=== PATIENT | female | born 1950 | race Hispanic/Latino ===

== ENCOUNTER → 2018-07-30 | Outpatient (CLI) | payer OTHER | END | disposition home or self-care (01) | LOC: RAH 12:35 | PROVIDERS: ATTEND Family Medicine | DX: N63.11 Unspecified lump in the right breast, upper outer quadrant (principal) | CPT/HCPCS: 76641 ==

== ENCOUNTER 2022-07-24 00:55 | Inpatient (IN) | payer OTHER, MEDICARE ==
[~2022-07-24] VITALS: Ht 162.6 cm; Wt 63.2 kg
[2022-07-24 01:26] LABS: BASOPHILS % (AUTO) 0.3 % (0.0-5.0); EOSINOPHILS % (AUTO) 0.5 % (0.0-8.0); HEMATOCRIT 41.1 % (36-48); LYMPHOCYTES % (AUTO) 18.4 % (21.0-51.0); MEAN CORPUSCULAR HEMOGLOBIN 30.2 pg (27.0-33.0); MEAN CORPUSCULAR HGB CONC 33.8 g/dL (32.0-36.0); MEAN CORPUSCULAR VOLUME 89.2 fL (79-99); NEUTROPHILS % (AUTO) 74.6 % (40.0-77.0); PLATELET COUNT (AUTO) 295 K/uL (130-400); RED BLOOD CELL COUNT(AUTO) 4.61 MIL/uL (4.00-5.50); RED CELL DISTRIBUTION WIDTH 12.6 % (11.0-15.5); WHITE BLOOD COUNT (AUTO) 14.9 K/uL (4.8-10.8)
[2022-07-24 01:29] LABS: APPEARANCE,URINE CLEAR (CLEAR); BILIRUBIN,URINE NEGATIVE (NEGATIVE); COLOR,URINE LIGHT-YELLOW (YELLOW); GLUCOSE, URINE (UA) NEGATIVE (NEGATIVE); KETONES,URINE NEGATIVE (NEGATIVE); LEUKOCYTE ESTERASE ,URINE NEGATIVE Leu/uL (NEGATIVE); NITRATE,URINE NEGATIVE (NEGATIVE); OCCULT BLOOD,URINE SMALL (NEGATIVE); PH,URINE 5.5 (5.0-8.0); PROTEIN,URINE NEGATIVE (NEGATIVE); UROBILINOGEN,URINE 0.2 mg/dL (0.2-1.0)
[2022-07-24] MEDS ORDERED: KETOROLAC 30MG VIAL (30MG/ML) IVP ONE (01:30)
[2022-07-24] MEDS ORDERED: ONDANSETRON 4MG INJ IVP ONE (01:30)
[2022-07-24 01:33] LABS: CREATININE 0.8 mg/dL (0.5-1.5); POTASSIUM 3.9 mmol/L (3.5-5.1)
[2022-07-24 01:37] LABS: TOTAL PROTEIN, SERUM 7.7 g/dL (6.0-8.3)
[2022-07-24 01:43] LABS: MUCUS,URINE RARE LPF (None Seen); SQUAMOUS EPITHELIAL CELL,UR RARE /HPF (0-2); WBC,URINE 0-1 /HPF (0-1)
[2022-07-24] MEDS ORDERED: METRONIDAZOLE 500MG/100ML BAG 100 ML ONE (03:57)
[2022-07-24] MEDS ORDERED: LEVOFLOXACIN 750 MG/D5W 150ML BAG IVPB ONE (04:00)
[2022-07-24] MEDS ORDERED: ONDANSETRON 4MG INJ IVP PRN (05:30)
[2022-07-24] MEDS ORDERED: HYDRALAZINE 20MG/ML VIAL IV PRN (05:30)
[2022-07-24] MEDS: LACTATED RINGERS 1000ML 1,000 ML IV SCH ×2 (05:44→11:33)
[2022-07-24] MEDS ORDERED: METRONIDAZOLE 500MG/100ML BAG 100 ML IVPB SCH (06:00)
[2022-07-24] MEDS: FAMOTIDINE 20MG VIAL IV SCH (08:06)
[2022-07-24] MEDS ORDERED: CEFTRIAXONE 2GM VIAL IVP SCH (09:00)
[2022-07-24 10:20] VITALS: BP 106/51
[2022-07-24] MEDS ORDERED: MEPERIDINE-PF 25 MG/ML SYG IVP PRN (15:00)
[2022-07-24] MEDS: ZOSYN 3.375GM +NS 50ML IV SCH ×2 (15:58→22:22)
[2022-07-24] MEDS: ACETAMINOPHEN 650 MG SUPPOSITORY RC SCH ×2 (15:58→22:11)
[2022-07-24 16:15] VITALS: BP 123/53
[2022-07-24 20:00] VITALS: BP 108/53
[2022-07-25] VITALS (7 sets, daily range): BP systolic 98–133; BP diastolic 46–66
[2022-07-25 05:19] LABS: BASOPHILS % (AUTO) 0.4 % (0.0-5.0); EOSINOPHILS % (AUTO) 1.7 % (0.0-8.0); HEMATOCRIT 34.6 % (36-48); MEAN CORPUSCULAR HEMOGLOBIN 30.1 pg (27.0-33.0); MEAN CORPUSCULAR HGB CONC 32.4 g/dL (32.0-36.0); MONOCYTES % (AUTO) 8.3 % (3.0-13.0); NEUTROPHILS % (AUTO) 60.3 % (40.0-77.0); PLATELET COUNT (AUTO) 208 K/uL (130-400); RED BLOOD CELL COUNT(AUTO) 3.72 MIL/uL (4.00-5.50); RED CELL DISTRIBUTION WIDTH 12.8 % (11.0-15.5); WHITE BLOOD COUNT (AUTO) 7.7 K/uL (4.8-10.8)
[2022-07-25] MEDS: ZOSYN 3.375GM +NS 50ML IV SCH ×3 (05:22→23:12)
[2022-07-25] MEDS: ACETAMINOPHEN 650 MG SUPPOSITORY RC SCH ×4 (05:26→23:14)
[2022-07-25 05:55] LABS: CREATININE 0.8 mg/dL (0.5-1.5); CRP QUANTITATIVE 124.4 mg/L (0.00-9.0); MAGNESIUM 1.9 mg/dL (1.80-2.40); PHOSPHORUS 4.2 mg/dL (2.5-4.9); POTASSIUM 3.5 mmol/L (3.5-5.1)
[2022-07-25] MEDS: FAMOTIDINE 20MG VIAL IV SCH (11:23)
[2022-07-25] MEDS ORDERED: SUCRALFATE 1 GM TABLET PO SCH (12:30)
[2022-07-25] MEDS ORDERED: MECL-160 PO (17:45)
[2022-07-25] MEDS ORDERED: LINA145C PO (17:45)
[2022-07-25] MEDS: PANTOPRAZOLE 40 MG TAB DR PO SCH ×2 (17:57→21:41)
[2022-07-25] MEDS: SUCRALFATE 1 GM TABLET PO SCH ×2 (17:57→21:41)
[2022-07-26 04:21] VITALS: BP 124/62
[2022-07-26] MEDS: SUCRALFATE 1 GM TABLET PO SCH ×4 (05:23→20:28)
[2022-07-26] MEDS: ZOSYN 3.375GM +NS 50ML IV SCH ×2 (05:27→15:46)
[2022-07-26 08:00] VITALS: BP 151/64
[2022-07-26] MEDS: PANTOPRAZOLE 40 MG TAB DR PO SCH ×2 (08:57→20:27)
[2022-07-26] MEDS: LACTATED RINGERS 1000ML 1,000 ML IV SCH ×2 (10:50→12:13)
[2022-07-26 11:51] VITALS: BP 141/63
[2022-07-26 15:55] VITALS: BP 136/64
[2022-07-26] MEDS ORDERED: PHARMACY COMMUNICATION MISC SCH (18:00)
[2022-07-26] MEDS ORDERED: ACETAMINOPHEN 325 MG TAB PO PRN (18:00)
[2022-07-26 20:51] VITALS: BP 125/63
[2022-07-26 23:34] VITALS: BP 151/62
[2022-07-27] MEDS: ZOSYN 3.375GM +NS 50ML IV SCH ×4 (00:26→15:32)
[2022-07-27] MEDS ORDERED: MAG/ALUM/SIMETH 30 ML UDCUP PO PRN (01:00)
[2022-07-27] MEDS ORDERED: NITROGLYCERIN 0.4 MG SL TAB SL PRN (01:00)
[2022-07-27] MEDS ORDERED: ASPIRIN 325MG TAB PO SCH (01:00)
[2022-07-27 04:12] VITALS: BP 123/71
[2022-07-27 05:39] LABS: BASOPHILS % (AUTO) 0.3 % (0.0-5.0); EOSINOPHILS % (AUTO) 2.3 % (0.0-8.0); HEMATOCRIT 33.4 % (36-48); LYMPHOCYTES % (AUTO) 35.4 % (21.0-51.0); MEAN CORPUSCULAR HEMOGLOBIN 30.2 pg (27.0-33.0); MEAN CORPUSCULAR HGB CONC 33.8 g/dL (32.0-36.0); MEAN CORPUSCULAR VOLUME 89.3 fL (79-99); MONOCYTES % (AUTO) 6.3 % (3.0-13.0); NEUTROPHILS % (AUTO) 55.4 % (40.0-77.0); PLATELET COUNT (AUTO) 236 K/uL (130-400); RED BLOOD CELL COUNT(AUTO) 3.74 MIL/uL (4.00-5.50); RED CELL DISTRIBUTION WIDTH 12.2 % (11.0-15.5); WHITE BLOOD COUNT (AUTO) 6.5 K/uL (4.8-10.8)
[2022-07-27 06:06] LABS: CREATININE 0.6 mg/dL (0.5-1.5); POTASSIUM 3.1 mmol/L (3.5-5.1)
[2022-07-27] MEDS: SUCRALFATE 1 GM TABLET PO SCH ×3 (06:37→15:32)
[2022-07-27] MEDS: PANTOPRAZOLE 40 MG TAB DR PO SCH (09:48)
[2022-07-27 16:00] VITALS: BP 129/57
== END 2022-07-27 18:00 | disposition home or self-care (01) | DRG 392 ==
LOC: EDH 00:55 → EDHIP 05:19 → OBSVTOIN 05:19 → 4CH 09:32
PROVIDERS: ADMIT Internal Medicine Critical Care Medicine; ATTEND Internal Medicine Critical Care Medicine
DX: K57.32 Diverticulitis of large intestine without perforation or abscess without bleeding (principal); F41.9 Anxiety disorder, unspecified; K59.09 Other constipation; K21.9 Gastro-esophageal reflux disease without esophagitis; Z90.710 Acquired absence of both cervix and uterus; Z88.5 Allergy status to narcotic agent; Z87.19 Personal history of other diseases of the digestive system; K58.1 Irritable bowel syndrome with constipation
CPT/HCPCS: 36415; 71045; 74176; 80048; 80053; 81001; 83735; 83880; 84100; 84484; 85025; 86140; 87040; 93005; 96374; 96375; G0378; J0696; J1885; J1956; J2175; J2405; J2543; J3490; J7120

== ENCOUNTER → 2023-02-22 | Outpatient (CLI) | payer OTHER, MEDICARE ==
[~2023-02-22] MED LIST: LINA145C PO; MECL-160 PO
== END | disposition home or self-care (01) ==
LOC: RAH 10:30
PROVIDERS: ATTEND Internal Medicine
DX: R10.12 Left upper quadrant pain (principal); R11.0 Nausea
CPT/HCPCS: 78264; A9541

== ENCOUNTER → 2023-07-06 | Outpatient (CLI) | payer OTHER, MEDICARE ==
[~2023-07-06] MED LIST changes: -MECL-160 PO; +MECL-302 PO
[2023-07-06 14:16] LABS: BASOPHILS # (AUTO) 0.04 K/uL (0.00-0.20); BASOPHILS % (AUTO) 0.7 % (0.0-5.0); EOSINOPHILS # (AUTO) 0.05 K/uL (0.00-0.70); EOSINOPHILS % (AUTO) 0.9 % (0.0-8.0); IMMATURE GRANULOCYTE ABSOLUTE 0.01 K/uL (0-1); LYMPHOCYTES # (AUTO) 2.2 K/uL (1.0-4.8); LYMPHOCYTES % (AUTO) 40.7 % (21.0-51.0); MEAN CORPUSCULAR HEMOGLOBIN 30.4 pg (27.0-33.0); MEAN CORPUSCULAR HGB CONC 33.6 g/dL (32.0-36.0); MEAN CORPUSCULAR VOLUME 90.5 fL (79-99); MONOCYTES # (AUTO) 0.3 K/uL (0.1-1.0); MONOCYTES % (AUTO) 5.9 % (3.0-13.0); NEUTROPHILS # (AUTO) 2.8 K/uL (1.8-7.7); NEUTROPHILS % (AUTO) 51.6 % (40.0-77.0); PLATELET COUNT (AUTO) 279 K/uL (130-400); RED BLOOD CELL COUNT(AUTO) 4.31 MIL/uL (4.00-5.50); RED CELL DISTRIBUTION WIDTH 12.6 % (11.0-15.5); WHITE BLOOD COUNT (AUTO) 5.5 K/uL (4.8-10.8)
[2023-07-06 14:32] LABS: ALBUMIN 3.4 g/dL (3.5-5.0); BILIRUBIN,TOTAL 0.3 mg/dL (0.2-1.0); CREATININE 0.6 mg/dL (0.5-1.5); TOTAL PROTEIN, SERUM 6.9 g/dL (6.0-8.3)
== END | disposition home or self-care (01) ==
LOC: LAB 13:43
PROVIDERS: ATTEND Internal Medicine
DX: R10.32 Left lower quadrant pain (principal)
CPT/HCPCS: 36415; 80053; 85025

== ENCOUNTER → 2023-07-14 | Outpatient (CLI) | payer OTHER, MEDICARE ==
[~2023-07-14] MED LIST changes: +IOHEXOL-350 75 ML VIAL IV ONE
== END | disposition home or self-care (01) ==
LOC: RAH 07:24
PROVIDERS: ATTEND Internal Medicine
DX: K57.90 Diverticulosis of intestine, part unspecified, without perforation or abscess without bleeding (principal); R10.32 Left lower quadrant pain; M47.815 Spondylosis without myelopathy or radiculopathy, thoracolumbar region; I70.90 Unspecified atherosclerosis; Z90.49 Acquired absence of other specified parts of digestive tract
CPT/HCPCS: 74178; Q9967

== ENCOUNTER 2023-09-28 03:05 | Inpatient (IN) | payer OTHER, MEDICARE ==
[~2023-09-28] VITALS: Ht 162.6 cm; Wt 59.4 kg
[~2023-09-28 03:05] MED LIST changes: -IOHEXOL-350 75 ML VIAL IV ONE; +MECL-160 PO; -MECL-302 PO
[2023-09-28 04:16] LABS: BASOPHILS # (AUTO) 0.04 K/uL (0.00-0.20); BASOPHILS % (AUTO) 0.5 % (0.0-5.0); EOSINOPHILS # (AUTO) 0.03 K/uL (0.00-0.70); EOSINOPHILS % (AUTO) 0.3 % (0.0-8.0); HEMATOCRIT 38.6 % (36-48); IMMATURE GRANULOCYTE ABSOLUTE 0.03 K/uL (0-1); LYMPHOCYTES # (AUTO) 1.7 K/uL (1.0-4.8); LYMPHOCYTES % (AUTO) 18.9 % (21.0-51.0); MEAN CORPUSCULAR HEMOGLOBIN 30.6 pg (27.0-33.0); MEAN CORPUSCULAR HGB CONC 33.4 g/dL (32.0-36.0); MEAN CORPUSCULAR VOLUME 91.7 fL (79-99); MONOCYTES # (AUTO) 0.4 K/uL (0.1-1.0); MONOCYTES % (AUTO) 4.5 % (3.0-13.0); NEUTROPHILS # (AUTO) 6.7 K/uL (1.8-7.7); NEUTROPHILS % (AUTO) 75.5 % (40.0-77.0); PLATELET COUNT (AUTO) 261 K/uL (130-400); RED BLOOD CELL COUNT(AUTO) 4.21 MIL/uL (4.00-5.50); RED CELL DISTRIBUTION WIDTH 13.5 % (11.0-15.5); WHITE BLOOD COUNT (AUTO) 8.9 K/uL (4.8-10.8)
[2023-09-28] MEDS: MECLIZINE HCL 25 MG TABLET PO ONE (04:18)
[2023-09-28] MEDS: ONDANSETRON 4MG INJ IVP ONE (04:18)
[2023-09-28 04:32] LABS: INR 0.96 (0.85-1.15); PROTHROMBIN TIME 11.4 SEC (9.6-11.6)
[2023-09-28 04:33] LABS: CREATININE 0.5 mg/dL (0.5-1.0); PARTIAL THROMBOPLASTIN TIME 25.5 SEC (26.3-35.5); POTASSIUM 4.2 mmol/L (3.5-5.1)
[2023-09-28 04:37] LABS: ALBUMIN 3.3 g/dL (3.5-5.0); BILIRUBIN,TOTAL 0.4 mg/dL (0.2-1.0); TOTAL PROTEIN, SERUM 6.5 g/dL (6.0-8.3)
[2023-09-28] MEDS ORDERED: AMOX1TAB16 PO (05:47)
[2023-09-28] MEDS ORDERED: MECL-160 PO (05:47)
[2023-09-28 06:04] LABS: APPEARANCE,URINE CLEAR (CLEAR); BILIRUBIN,URINE NEGATIVE (NEGATIVE); COLOR,URINE COLORLESS (YELLOW); GLUCOSE, URINE (UA) NEGATIVE (NEGATIVE); KETONES,URINE NEGATIVE (NEGATIVE); LEUKOCYTE ESTERASE ,URINE 25 Leu/uL (NEGATIVE); NITRATE,URINE NEGATIVE (NEGATIVE); PH,URINE 6.5 (5.0-8.0); PROTEIN,URINE NEGATIVE (NEGATIVE); UROBILINOGEN,URINE 0.2 mg/dL (0.2-1.0)
[2023-09-28 06:05] LABS: ADD UA MICROSCOPIC YES
[2023-09-28 06:07] LABS: SQUAMOUS EPITHELIAL CELL,UR RARE /HPF (0-2)
[2023-09-28] MEDS ORDERED: HYDRALAZINE 20MG/ML VIAL IV PRN (07:00)
[2023-09-28] MEDS ORDERED: ACETAMINOPHEN 650 MG SUPPOSITORY RC PRN (07:00)
[2023-09-28] MEDS ORDERED: LACTULOSE 20 GM/30 ML UDCUP PO PRN (07:00)
[2023-09-28] MEDS ORDERED: ONDANSETRON 4MG INJ IVP PRN (07:00)
[2023-09-28 07:30] VITALS: BP 117/67; PULSE 51; RESP 18; O2SAT 100
[2023-09-28] MEDS: INSULIN HUMULIN R 100 UNIT/ML 3ML SQ SCH (07:30)
[2023-09-28] MEDS ORDERED: POTASSIUM CHLORIDE 10% ELIXIR 20 MEQ/15 ML UDCUP PO PRN (09:00)
[2023-09-28] MEDS ORDERED: POTASSIUM CHLORIDE 20MEQ/100ML 100 ML IV PRN (09:00)
[2023-09-28] MEDS: ENOXAPARIN SODIUM 40 MG/0.4 ML SYRINGE SQ SCH (09:32)
[2023-09-28] MEDS: CEFTRIAXONE 2GM VIAL IVPB SCH (09:32)
[2023-09-28] MEDS: ASPIRIN 81 MG EC TAB PO SCH (09:33)
[2023-09-28] MEDS: PANTOPRAZOLE 40 MG TAB DR PO SCH (09:33)
[2023-09-28 10:16] LABS: THYROID STIMULATING HORMONE 2.9 uIU/mL (0.36-3.74)
[2023-09-28 12:17] VITALS: BP 109/43; PULSE 49; RESP 18
[2023-09-28] MEDS: ACETAMINOPHEN 325 MG TAB PO PRN (14:17)
[2023-09-28] MEDS: CLOPIDOGREL 300MG TAB PO ONE (15:16)
[2023-09-28] MEDS: NITROGLYCERIN 0.4 MG SL TAB SL PRN (15:20)
[2023-09-28] MEDS ORDERED: ENOXAPARIN SODIUM 60 MG/0.6 ML SQ SCH (15:30)
[2023-09-28 16:00] VITALS: BP 113/50; PULSE 48; RESP 18
[2023-09-28 19:10] VITALS: BP 110/57; PULSE 47; RESP 18
[2023-09-28 19:30] VITALS: O2SAT 100
[2023-09-28] MEDS: ENOXAPARIN SODIUM 60 MG/0.6 ML SQ SCH (21:56)
[2023-09-28] MEDS: ATORVASTATIN 20 MG TABLET PO SCH (22:50)
[2023-09-29] VITALS (9 sets, daily range): BP systolic 113–139; BP diastolic 48–58; PULSE 45–54; RESP 18–20; O2SAT 93–98
[2023-09-29 05:06] LABS: BASOPHILS # (AUTO) 0.05 K/uL (0.00-0.20); BASOPHILS % (AUTO) 0.8 % (0.0-5.0); EOSINOPHILS % (AUTO) 1.6 % (0.0-8.0); HEMATOCRIT 35.7 % (36-48); IMMATURE GRANULOCYTE ABSOLUTE 0.01 K/uL (0-1); LYMPHOCYTES # (AUTO) 3.4 K/uL (1.0-4.8); LYMPHOCYTES % (AUTO) 52.8 % (21.0-51.0); MEAN CORPUSCULAR HEMOGLOBIN 30.5 pg (27.0-33.0); MEAN CORPUSCULAR HGB CONC 34.2 g/dL (32.0-36.0); MEAN CORPUSCULAR VOLUME 89.3 fL (79-99); MONOCYTES # (AUTO) 0.4 K/uL (0.1-1.0); MONOCYTES % (AUTO) 6.4 % (3.0-13.0); NEUTROPHILS # (AUTO) 2.4 K/uL (1.8-7.7); NEUTROPHILS % (AUTO) 38.2 % (40.0-77.0); PLATELET COUNT (AUTO) 257 K/uL (130-400); RED CELL DISTRIBUTION WIDTH 13.6 % (11.0-15.5); WHITE BLOOD COUNT (AUTO) 6.4 K/uL (4.8-10.8)
[2023-09-29 05:19] LABS: CREATININE 0.7 mg/dL (0.5-1.0); PHOSPHORUS 4.1 mg/dL (2.5-4.9); POTASSIUM 3.4 mmol/L (3.5-5.1)
[2023-09-29] MEDS: CLOPIDOGREL 75MG TAB PO SCH (09:29)
[2023-09-29] MEDS: KCL 20 MEQ ERTAB PO PRN (09:31)
[2023-09-29] MEDS ORDERED: CALCIUM CARB 500MG CHEW TAB PO PRN (10:30)
[2023-09-29] MEDS: CALCIUM CARB 500MG CHEW TAB PO PRN (11:21)
[2023-09-30] VITALS (39 sets, daily range): BP systolic 90–162; BP diastolic 34–97; PULSE 40–86; RESP 12–28; TEMP 97.8–98.8; O2SAT 98
[2023-09-30 04:45] LABS: BASOPHILS # (AUTO) 0.05 K/uL (0.00-0.20); BASOPHILS % (AUTO) 0.7 % (0.0-5.0); EOSINOPHILS # (AUTO) 0.13 K/uL (0.00-0.70); EOSINOPHILS % (AUTO) 1.8 % (0.0-8.0); HEMATOCRIT 37.1 % (36-48); IMMATURE GRANULOCYTE ABSOLUTE 0.01 K/uL (0-1); LYMPHOCYTES # (AUTO) 3.2 K/uL (1.0-4.8); MEAN CORPUSCULAR HEMOGLOBIN 30.4 pg (27.0-33.0); MEAN CORPUSCULAR HGB CONC 33.2 g/dL (32.0-36.0); MEAN CORPUSCULAR VOLUME 91.8 fL (79-99); MONOCYTES # (AUTO) 0.5 K/uL (0.1-1.0); MONOCYTES % (AUTO) 7.2 % (3.0-13.0); NEUTROPHILS # (AUTO) 3.2 K/uL (1.8-7.7); NEUTROPHILS % (AUTO) 45.2 % (40.0-77.0); PLATELET COUNT (AUTO) 253 K/uL (130-400); RED BLOOD CELL COUNT(AUTO) 4.04 MIL/uL (4.00-5.50); RED CELL DISTRIBUTION WIDTH 13.3 % (11.0-15.5); WHITE BLOOD COUNT (AUTO) 7.1 K/uL (4.8-10.8)
[2023-09-30 05:03] LABS: ALBUMIN 3.2 g/dL (3.5-5.0); BILIRUBIN,TOTAL 0.6 mg/dL (0.2-1.0); CREATININE 0.7 mg/dL (0.5-1.0); MAGNESIUM 1.9 mg/dL (1.80-2.40); TOTAL PROTEIN, SERUM 6.1 g/dL (6.0-8.3)
[2023-09-30] MEDS: LINZESS 145MCG CAPSULE PO SCH (06:12)
[2023-09-30] MEDS: MAGNESIUM 2GM PREMIX 50ML 50 ML IV PRN (06:41)
[2023-09-30] MEDS: MORPHINE 2 MG SYG ONE (18:13)
[2023-09-30] MEDS ORDERED: NITROGLYCERIN 50MG/D5W 250ML 250 BOT IV PRN (18:30)
[2023-09-30] MEDS ORDERED: ONDANSETRON 4MG TABLET PO PRN (18:30)
[2023-09-30] MEDS: NITROGLYCERIN 50MG/D5W 250ML 1 BOT ONE (18:38)
[2023-09-30] MEDS: METOPROLOL TARTRATE 1 MG/ML 5ML VIAL IV ONE (18:43)
[2023-09-30] MEDS: METOPROLOL TARTRATE 25 MG TAB PO SCH (20:47)
[2023-10-01] VITALS (107 sets, daily range): BP systolic 88–152; BP diastolic 23–100; PULSE 40–95; RESP 9–39; TEMP 97.4–98; O2SAT 98–99
[2023-10-01 04:47] LABS: BASOPHILS # (AUTO) 0.05 K/uL (0.00-0.20); BASOPHILS % (AUTO) 0.8 % (0.0-5.0); EOSINOPHILS # (AUTO) 0.12 K/uL (0.00-0.70); EOSINOPHILS % (AUTO) 1.9 % (0.0-8.0); IMMATURE GRANULOCYTE ABSOLUTE 0.01 K/uL (0-1); LYMPHOCYTES # (AUTO) 3.2 K/uL (1.0-4.8); LYMPHOCYTES % (AUTO) 51.8 % (21.0-51.0); MEAN CORPUSCULAR HEMOGLOBIN 30.4 pg (27.0-33.0); MEAN CORPUSCULAR HGB CONC 33.1 g/dL (32.0-36.0); MEAN CORPUSCULAR VOLUME 92.1 fL (79-99); MONOCYTES # (AUTO) 0.5 K/uL (0.1-1.0); MONOCYTES % (AUTO) 7.8 % (3.0-13.0); NEUTROPHILS # (AUTO) 2.3 K/uL (1.8-7.7); NEUTROPHILS % (AUTO) 37.5 % (40.0-77.0); PLATELET COUNT (AUTO) 245 K/uL (130-400); RED BLOOD CELL COUNT(AUTO) 3.91 MIL/uL (4.00-5.50); RED CELL DISTRIBUTION WIDTH 13.3 % (11.0-15.5); WHITE BLOOD COUNT (AUTO) 6.3 K/uL (4.8-10.8)
[2023-10-01 05:08] LABS: ALBUMIN 3.2 g/dL (3.5-5.0); BILIRUBIN,TOTAL 0.6 mg/dL (0.2-1.0); CREATININE 0.8 mg/dL (0.5-1.0); MAGNESIUM 2.1 mg/dL (1.80-2.40); POTASSIUM 3.8 mmol/L (3.5-5.1); TOTAL PROTEIN, SERUM 6.1 g/dL (6.0-8.3)
[2023-10-01] MEDS: METOPROLOL TARTRATE 1 MG/ML 5ML VIAL IV ONE ×2 (23:37→23:59)
[2023-10-02] VITALS (52 sets, daily range): BP systolic 87–131; BP diastolic 35–73; PULSE 40–77; RESP 9–33; TEMP 98–98.3; O2SAT 99–100
[2023-10-02] MEDS: FENTANYL CITRATE PF 50 MCG/1 ML 2ML VIAL IVP ONE ×2 (00:05→00:50)
[2023-10-02 03:38] LABS: HEMATOCRIT 35.7 % (36-48); MEAN CORPUSCULAR HEMOGLOBIN 29.8 pg (27.0-33.0); MEAN CORPUSCULAR HGB CONC 32.8 g/dL (32.0-36.0); MEAN CORPUSCULAR VOLUME 91.1 fL (79-99); RED BLOOD CELL COUNT(AUTO) 3.92 MIL/uL (4.00-5.50); WHITE BLOOD COUNT (AUTO) 7.3 K/uL (4.8-10.8)
[2023-10-02 03:48] LABS: CREATININE 0.8 mg/dL (0.5-1.0)
[2023-10-02 03:58] LABS: INR 1.02 (0.85-1.15); PARTIAL THROMBOPLASTIN TIME 30.6 SEC (26.3-35.5)
[2023-10-02 04:02] LABS: POTASSIUM 3.7 mmol/L (3.5-5.1)
[2023-10-02] MEDS ORDERED: LIDOCAINE HCL 400MG/20ML VIAL ONE (07:42)
[2023-10-02] MEDS ORDERED: HEPARIN 10,000 UNIT/10ML (1,000 UNIT/ML) VIAL ONE (07:42)
[2023-10-02] MEDS ORDERED: MIDAZOLAM HCL 1 MG/ML 2ML VIAL ONE (07:42)
[2023-10-02] MEDS ORDERED: FENTANYL CITRATE PF 50 MCG/1 ML 2ML VIAL ONE (07:42)
[2023-10-02] MEDS ORDERED: NICARDIPINE 25MG INJ IV ONE (07:42)
[2023-10-02] MEDS ORDERED: IOHEXOL 350 MG/ML 100ML INFUS..BTL IV ONE (07:42)
[2023-10-02] MEDS ORDERED: NITROGLYCERIN 50MG VIAL ONE (07:55)
[2023-10-02] MEDS ORDERED: IOHEXOL-350 50ML VIAL IV ONE (08:49)
[2023-10-02] MEDS ORDERED: GLUCAGON 1MG KIT 1 MG ML IM PRN (09:30)
[2023-10-02] MEDS ORDERED: DEXTROSE 50%-WATER 50 ML DISP.SYRIN IV PRN (09:30)
[2023-10-02] MEDS: 0.9%NACL 1000ML 1,000 ML IV SCH (09:51)
[2023-10-02] MEDS: METOPROLOL TARTRATE 25 MG TAB PO ONE (10:07)
[2023-10-02 11:27] LABS: HEMOGLOBIN A1C 5.5 % (4.0-6.0)
[2023-10-02] MEDS ORDERED: METOPROLOL TARTRATE 25 MG TAB PO SCH (21:00)
[2023-10-02] MEDS: TEMAZEPAM 15 MG CAPSULE PO PRN (22:07)
[2023-10-03 04:44] VITALS: BP 142/75; PULSE 52; RESP 18
[2023-10-03 07:00] VITALS: BP 142/51; PULSE 43; RESP 12
[2023-10-03 08:00] VITALS: O2SAT 100
[2023-10-03] MEDS: DOCUSATE SODIUM 100 MG CAP PO PRN (09:14)
[2023-10-03] MEDS: METOPROLOL SUCCINATE 25 MG TAB.SR.24H PO SCH (09:15)
[2023-10-03 09:30] VITALS: PULSE 62
[2023-10-03 09:52] LABS: HEMATOCRIT 38.2 % (36-48); MEAN CORPUSCULAR HEMOGLOBIN 30.5 pg (27.0-33.0); MEAN CORPUSCULAR HGB CONC 32.7 g/dL (32.0-36.0); MEAN CORPUSCULAR VOLUME 93.2 fL (79-99); RED BLOOD CELL COUNT(AUTO) 4.1 MIL/uL (4.00-5.50); RED CELL DISTRIBUTION WIDTH 13.2 % (11.0-15.5); WHITE BLOOD COUNT (AUTO) 7.7 K/uL (4.8-10.8)
[2023-10-03 10:00] LABS: CREATININE 0.6 mg/dL (0.5-1.0); MAGNESIUM 1.8 mg/dL (1.80-2.40); POTASSIUM 4.2 mmol/L (3.5-5.1)
[2023-10-03 11:00] VITALS: BP 119/54; PULSE 47; RESP 16
[2023-10-03 16:00] VITALS: BP 120/41; PULSE 46; RESP 16
[2023-10-03] MEDS ORDERED: METO-408 PO (17:16)
[2023-10-03] MEDS ORDERED: ATOR40TA71 PO (17:17)
[2023-10-03] MEDS ORDERED: ASPI-1005 PO (17:17)
== END 2023-10-03 17:43 | disposition home or self-care (01) | DRG 281 ==
LOC: EDH 03:05 → EDHIP 06:04 → OBSVTOIN 06:04 → 2AH 06:53 → 2CV 09-30 18:30 → 2CH 09-30 20:31 → 2AH 10-02 16:17
PROVIDERS: ADMIT Internal Medicine; ATTEND Internal Medicine
PROC: 4A023N7 Measurement of Cardiac Sampling and Pressure, Left Heart, Percutaneous Approach (ICD-10-PCS; principal; 2023-10-02)
PROC: B2111ZZ Fluoroscopy of Multiple Coronary Arteries using Low Osmolar Contrast (ICD-10-PCS; 2023-10-02)
PROC: B41F1ZZ Fluoroscopy of Right Lower Extremity Arteries using Low Osmolar Contrast (ICD-10-PCS; 2023-10-02)
DX: I25.110 Atherosclerotic heart disease of native coronary artery with unstable angina pectoris (principal); I21.A1 Myocardial infarction type 2; K57.32 Diverticulitis of large intestine without perforation or abscess without bleeding; N30.00 Acute cystitis without hematuria; E78.5 Hyperlipidemia, unspecified; K29.70 Gastritis, unspecified, without bleeding; K21.9 Gastro-esophageal reflux disease without esophagitis; F41.9 Anxiety disorder, unspecified; Z82.49 Family history of ischemic heart disease and other diseases of the circulatory system; Z88.5 Allergy status to narcotic agent; Z90.710 Acquired absence of both cervix and uterus; Z88.8 Allergy status to other drugs, medicaments and biological substances; Z88.1 Allergy status to other antibiotic agents
CPT/HCPCS: 36415; 70450; 71045; 74176; 80048; 80053; 80061; 81001; 82306; 82948; 83036; 83690; 83735; 83880; 84100; 84443; 84484; 85025; 85027; 85610; 85730; 87088; 93005; 93306; 93454; 93571; 93880; 99156; 99157; C1760; C1887; C1894; G0378; J0696; J1644; J1650; J2250; J2270; J2405; J3010; J3475; J3490; Q9967; C1769; Q9965

== ENCOUNTER 2023-10-12 03:56 | Emergency (ER) | payer OTHER, MEDICARE ==
[~2023-10-12 03:56] MED LIST changes: +ASPI-1005 PO; +ATOR40TA71 PO; +METO-408 PO
[2023-10-12 04:53] VITALS: BP 120/74; PULSE 50; RESP 18; O2SAT 98
[2023-10-12 05:16] LABS: BASOPHILS # (AUTO) 0.06 K/uL (0.00-0.20); EOSINOPHILS # (AUTO) 0.12 K/uL (0.00-0.70); HEMATOCRIT 33.8 % (36-48); IMMATURE GRANULOCYTE ABSOLUTE 0.01 K/uL (0-1); LYMPHOCYTES # (AUTO) 2.7 K/uL (1.0-4.8); MEAN CORPUSCULAR HEMOGLOBIN 31.5 pg (27.0-33.0); MEAN CORPUSCULAR HGB CONC 34.9 g/dL (32.0-36.0); MEAN CORPUSCULAR VOLUME 90.1 fL (79-99); MONOCYTES # (AUTO) 0.3 K/uL (0.1-1.0); MONOCYTES % (AUTO) 5.4 % (3.0-13.0); NEUTROPHILS # (AUTO) 2.7 K/uL (1.8-7.7); NEUTROPHILS % (AUTO) 45.4 % (40.0-77.0); PLATELET COUNT (AUTO) 282 K/uL (130-400); RED BLOOD CELL COUNT(AUTO) 3.75 MIL/uL (4.00-5.50); RED CELL DISTRIBUTION WIDTH 12.9 % (11.0-15.5); WHITE BLOOD COUNT (AUTO) 5.9 K/uL (4.8-10.8)
[2023-10-12 05:27] LABS: CREATININE 0.7 mg/dL (0.5-1.0); POTASSIUM 3.3 mmol/L (3.5-5.1)
[2023-10-12 05:31] LABS: ALBUMIN 3.2 g/dL (3.5-5.0); BILIRUBIN,TOTAL 0.6 mg/dL (0.2-1.0)
== END 2023-10-12 07:28 | disposition home or self-care (01) ==
LOC: EDH 03:56
DX: R06.02 Shortness of breath (principal); R07.89 Other chest pain; K21.9 Gastro-esophageal reflux disease without esophagitis; Z79.82 Long term (current) use of aspirin; Z79.899 Other long term (current) drug therapy; Z88.5 Allergy status to narcotic agent; Z90.710 Acquired absence of both cervix and uterus
CPT/HCPCS: 36415; 71045; 80053; 83880; 84484; 85025; 85378; 93005

== ENCOUNTER 2023-10-18 09:03 | Emergency (ER) | payer OTHER, MEDICARE ==
[~2023-10-18] VITALS: Ht 162.6 cm; Wt 65.8 kg
[~2023-10-18 09:03] MED LIST changes: -MECL-160 PO
[2023-10-18] MEDS: LIDOCAINE HCL 2% VISCOUS 15 ML UDCUP PO ONE (09:27)
[2023-10-18] MEDS: MAG/ALUM/SIMETH 30 ML UDCUP PO ONE (09:27)
[2023-10-18] MEDS: ONDANSETRON 4MG INJ IVP ONE (09:27)
[2023-10-18] MEDS: FAMOTIDINE 20MG VIAL IV ONE (09:27)
[2023-10-18 09:29] LABS: BASOPHILS # (AUTO) 0.03 K/uL (0.00-0.20); BASOPHILS % (AUTO) 0.3 % (0.0-5.0); EOSINOPHILS # (AUTO) 0.07 K/uL (0.00-0.70); EOSINOPHILS % (AUTO) 0.7 % (0.0-8.0); HEMATOCRIT 39.5 % (36-48); IMMATURE GRANULOCYTE ABSOLUTE 0.03 K/uL (0-1); LYMPHOCYTES % (AUTO) 21.5 % (21.0-51.0); MEAN CORPUSCULAR HEMOGLOBIN 30.5 pg (27.0-33.0); MEAN CORPUSCULAR HGB CONC 33.4 g/dL (32.0-36.0); MEAN CORPUSCULAR VOLUME 91.2 fL (79-99); MONOCYTES # (AUTO) 0.4 K/uL (0.1-1.0); MONOCYTES % (AUTO) 3.9 % (3.0-13.0); NEUTROPHILS # (AUTO) 6.9 K/uL (1.8-7.7); NEUTROPHILS % (AUTO) 73.3 % (40.0-77.0); PLATELET COUNT (AUTO) 327 K/uL (130-400); RED BLOOD CELL COUNT(AUTO) 4.33 MIL/uL (4.00-5.50); RED CELL DISTRIBUTION WIDTH 13.6 % (11.0-15.5); WHITE BLOOD COUNT (AUTO) 9.4 K/uL (4.8-10.8)
[2023-10-18 09:39] LABS: CREATININE 0.7 mg/dL (0.5-1.0); POTASSIUM 3.9 mmol/L (3.5-5.1)
[2023-10-18] MEDS: KETOROLAC 15MG/ML VIAL (15MG/ML) IV ONE (09:40)
[2023-10-18 09:43] LABS: ALBUMIN 3.8 g/dL (3.5-5.0); BILIRUBIN,TOTAL 0.6 mg/dL (0.2-1.0); TOTAL PROTEIN, SERUM 7.2 g/dL (6.0-8.3)
[2023-10-18] MEDS ORDERED: IOHEXOL 350 MG/ML 100ML INFUS..BTL IV ONE (11:36)
[2023-10-18] MEDS: PANTOPRAZOLE 40 MG/VIAL IVP ONE (12:29)
[2023-10-18] MEDS: DICYCLOMINE HCL 20 MG TAB PO ONE (12:47)
[2023-10-18 13:01] LABS: APPEARANCE,URINE CLEAR (CLEAR); BILIRUBIN,URINE NEGATIVE (NEGATIVE); COLOR,URINE LIGHT-YELLOW (YELLOW); GLUCOSE, URINE (UA) NEGATIVE (NEGATIVE); KETONES,URINE NEGATIVE (NEGATIVE); LEUKOCYTE ESTERASE ,URINE NEGATIVE Leu/uL (NEGATIVE); NITRATE,URINE NEGATIVE (NEGATIVE); PROTEIN,URINE 20 mg/dL (NEGATIVE); UROBILINOGEN,URINE 0.2 mg/dL (0.2-1.0)
[2023-10-18 13:02] LABS: ADD UA MICROSCOPIC YES
[2023-10-18 13:37] LABS: BACTERIA,URINE RARE /HPF (None Seen); SQUAMOUS EPITHELIAL CELL,UR RARE /HPF (0-2)
[2023-10-18] MEDS ORDERED: DICY20TA2 PO (14:00)
[2023-10-18] MEDS ORDERED: ONDA4TAB10 PO (14:00)
[2023-10-18] MEDS ORDERED: FAMO-136 PO (14:00)
[2023-10-18 14:21] VITALS: BP 112/46; PULSE 51; RESP 18; O2SAT 98
== END 2023-10-18 14:31 | disposition home or self-care (01) ==
LOC: EDH 09:03
DX: K57.30 Diverticulosis of large intestine without perforation or abscess without bleeding (principal); K29.70 Gastritis, unspecified, without bleeding; I10 Essential (primary) hypertension; K21.9 Gastro-esophageal reflux disease without esophagitis; Z79.82 Long term (current) use of aspirin; Z79.899 Other long term (current) drug therapy; Z98.890 Other specified postprocedural states; Z88.5 Allergy status to narcotic agent; Z88.8 Allergy status to other drugs, medicaments and biological substances
CPT/HCPCS: 99285; 74177; 96374; 96375; 71045; 84484; 80053; 83690; 85025; 81001; 36415; 93005; J3490; J2405; C9113; J1885; Q9967

== ENCOUNTER 2023-12-01 10:05 | Emergency (ER) | payer OTHER, MEDICARE ==
[~2023-12-01] VITALS: Ht 162.6 cm; Wt 57.6 kg
[~2023-12-01 10:05] MED LIST changes: +DICY20TA2 PO; +FAMO-136 PO; +ONDA4TAB10 PO
[2023-12-01] MEDS ORDERED: HYDR25SU7 RC (13:19)
[2023-12-01] MEDS ORDERED: IBUP-2070 PO (13:19)
[2023-12-01] MEDS: SOLU-MEDROL 125MG VIAL IVP ONE (13:25)
[2023-12-01] MEDS: HYDROCODONE/ACETAMINOPHEN 5/325 MG TAB PO ONE (13:25)
[2023-12-01 14:21] VITALS: BP 130/45; PULSE 54; RESP 18; O2SAT 99
== END 2023-12-01 14:21 | disposition home or self-care (01) ==
LOC: EDH 10:05
DX: K64.4 Residual hemorrhoidal skin tags (principal); Z79.82 Long term (current) use of aspirin; Z79.899 Other long term (current) drug therapy; Z87.19 Personal history of other diseases of the digestive system; Z90.49 Acquired absence of other specified parts of digestive tract; Z90.710 Acquired absence of both cervix and uterus; Z98.890 Other specified postprocedural states; Z88.5 Allergy status to narcotic agent; Z88.8 Allergy status to other drugs, medicaments and biological substances
CPT/HCPCS: 99283; 96374; 74018; J2919

== ENCOUNTER → 2024-03-06 | Outpatient (CLI) | payer OTHER, MEDICARE ==
[~2024-03-06] MED LIST changes: +HYDR25SU7 RC; +IBUP-2070 PO; +ONDA-243 PO; -ONDA4TAB10 PO
[2024-03-06 16:19] LABS: CREATININE 0.7 mg/dL (0.5-1.0)
== END | disposition home or self-care (01) ==
LOC: LAB 15:13
PROVIDERS: ATTEND Family Medicine
DX: I11.9 Hypertensive heart disease without heart failure (principal)
CPT/HCPCS: 36415; 82565; 84520